=== PATIENT | female | born 1970 | race Caucasian/White ===

== ENCOUNTER 2023-07-22 09:37 | Emergency (ER) | payer BC, SELFPAY ==
[2023-07-22 09:44] VITALS: BP 146/87
--- NOTE | 2023-07-22 10:40 | ED.GENMED ---
History of Present Illness
<ISABELL Patino - Last Filed: 07/22/23 12:41>
General
Chief Complaint: Dizziness
Source: patient
Exam Limitations: none
Time Seen by Provider: 07/22/23 10:13
Travel History
Have you had any contact with someone who has COVID-19?: No
Do you have any symptoms of coronavirus? Fever > 100 degrees, chills, cough, shortness of breath, sore throat, loss of taste or smell, muscle aches, or headache?: No
History of Present Illness
History of Present Illness:
Patient is a 53-year-old female who presents to the ER for evaluation. Patient reports on Friday she did not feel well felt' off.' She thought she may have had food poisoning or was hung over from the night before. She did vomit 1 but since
Friday night she developed what she describes as' a haze.' Despite describing feeling like she is in a haze she reports her vision is clear. She just feels off. She has some pressure to the front of her head but denies any actual headache. She
denies any recent injury. She at times feels that she is moving when she has not but the room is not spinning. She has never had a history of vertigo. She denies any recent illness fever chills. She denies any recent trauma.
She denies any associated chest pain shortness of breath.
Past History
<ISABELL Patino - Last Filed: 07/22/23 12:41>
Past History
ED Past Medical History: None
ED Past Surgical History: None
Social History
Tobacco: Non-smoker
Alcohol: None
Drug: Marijuana
Review of Systems
<ISABELL Patino - Last Filed: 07/22/23 12:41>
Review of Systems
Allergies reviewed?: Yes
All Other Systems: ROS reviewed and negative except as documented in HPI and ROS
Constitutional: Reports no symptoms; Denies fever, fatigue or chills
Respiratory: Reports no symptoms
Cardiac: Reports no symptoms
ABD/GI: Reports nausea, vomiting and other (pt vomited once on Friday 2 d ago )
: Reports no symptoms
Musculoskeletal: Reports no symptoms
Skin: Reports no symptoms
Neurological: Reports other (feels like she is in a 'haze' ); Denies headache, weakness or numbness
Hematologic/Lymphatic: Reports no symptoms
Psychiatric: Reports no symptoms
Phy Exam
<ISABELL Patino - Last Filed: 07/22/23 12:41>
General Physical Exam
General Presentation: no apparent distress
General age: appears stated age
General Skin: warm and dry
General Habitus: normal
General Mental: alert
General Hydration: appears well hydrated
ENT Exam
ENT Exam: EOMI and neck supple
Eye Exam
Eye Exam: PERRL, EOMI and other (no nystagmus b/l )
Eye Exam General: PERRL: bilateral and EOM intact: bilateral
Pupil Exam: Bilateral: round and reactive
Cardiovascular Exam
Cardiovascular Exam: regular rate/rhythm, no murmur and normal peripheral pulses
Pulmonary Exam
Pulmonary Exam: lungs clear
Neurological Exam
Neurological Exam: alert, oriented x3, no motor deficits, no sensory deficits, speech normal and other (Ambulatory with a steady gait)
[place] Coma Scale
Eye Opening: Spontaneous
Verbal Response: Oriented
Motor Response: Obeys Commands
GCS Total Score: 15
Cerebellar
Cerebellar Function: normal finger to nose
Musculoskeletal Exam
Musculoskeletal Exam: full ROM
Skin Exam
Skin Exam: normal color and warm/dry
Psychiatric Exam
Psychiatric Exam: normal mood/affect
Course
<ISABELL Patino - Last Filed: 07/22/23 12:41>
Orders/Labs/Results
Orders:
Orders
07/22/23 10:37
CT Head W/o Iv Contrast Urgent
Comment:
Reason For Exam: dizzy
07/22/23 10:38
Cardiac Monitoring- Treatment ONCE
IV Insert/Care/Rem.- Treatment PRN
07/22/23 10:40
Electrocardiogram (*1) Stat
Reason for Study: Abdominal Pain
EKG- Treatment ONCE
07/22/23 10:43
Complete Blood Count/With Diff Urgent
Comprehensive Metabolic Panel Urgent
07/22/23 10:55
0.9% Sodium Chloride 1000 ml [Nss] 1,000 ml IV BOLUS
07/22/23 10:56
Meclizine [Antivert] 25 mg PO NOW STA
Abnormal Lab Results
07/22/23
10:43
RBC 4.15 L 10^6/uL
(4.20-5.40)
Hct 36.3 L %
(37.0-47.0)
BUN 21 H mg/dl
(7-17)
07/22/23 10:43
07/22/23 10:43
Vital Signs
Initial and Last Documented VS:
Initial Vital Signs
Temp Pulse Resp BP Pulse Ox
98.1 F 60 16 146/87 100
07/22/23 09:44 07/22/23 09:44 07/22/23 09:44 07/22/23 09:44 07/22/23 09:44
Last Documented Vital Signs
Temp Pulse Resp BP Pulse Ox
98.1 F 55 16 120/69 99
07/22/23 09:44 07/22/23 11:05 07/22/23 11:05 07/22/23 11:05 07/22/23 11:05
Internet Sales Associate consulted with Physician
Internet Sales Associate consulted with physician?: Yes
Name of Physician Consulted: [facility]
<Delbert Bill Isaac, DO - Last Filed: 07/22/23 11:33>
Orders/Labs/Results
Orders:
Orders
07/22/23 10:37
CT Head W/o Iv Contrast Urgent
Comment:
Reason For Exam: dizzy
07/22/23 10:38
Cardiac Monitoring- Treatment ONCE
IV Insert/Care/Rem.- Treatment PRN
07/22/23 10:40
Electrocardiogram (*1) Stat
Reason for Study: Abdominal Pain
EKG- Treatment ONCE
07/22/23 10:43
Complete Blood Count/With Diff Urgent
Comprehensive Metabolic Panel Urgent
07/22/23 10:55
0.9% Sodium Chloride 1000 ml [Nss] 1,000 ml IV BOLUS
07/22/23 10:56
Meclizine [Antivert] 25 mg PO NOW STA
Abnormal Lab Results
07/22/23
10:43
RBC 4.15 L 10^6/uL
(4.20-5.40)
Hct 36.3 L %
(37.0-47.0)
BUN 21 H mg/dl
(7-17)
07/22/23 10:43
07/22/23 10:43
Vital Signs
Initial and Last Documented VS:
Initial Vital Signs
Temp Pulse Resp BP Pulse Ox
98.1 F 60 16 146/87 100
07/22/23 09:44 07/22/23 09:44 07/22/23 09:44 07/22/23 09:44 07/22/23 09:44
Last Documented Vital Signs
Temp Pulse Resp BP Pulse Ox
98.1 F 55 16 120/69 99
07/22/23 09:44 07/22/23 11:05 07/22/23 11:05 07/22/23 11:05 07/22/23 11:05
<ISABELL Patino - Last Filed: 07/22/23 12:41>
MDM/Problems Addressed
Differential Diagnosis Includes:
not limited to: Orthostatic hypotension, vertigo, dehydration
MDM/Problems Addressed:
Symptoms are consistent with possible vertigo. Patient describes feeling foggy feels like she is in a haze does feel like she is moving things not necessarily spinning. She however has no other concerning findings. On exam she is nontoxic with
normal neurologic exam no obvious head injury CAT scan negative. Patient feels meclizine. She did not drink a lot of fluids yesterday because of not feeling well. Will give fluids here in the ER. Labs unremarkable. Case discussed with ED
physician who examined patient will DC with meclizine with close outpatient follow-up family doctor.
<ISABELL Patino - Last Filed: 07/22/23 12:41>
*Radiology
Radiology exam reviewed: radiology read reviewed
*EKG
Interpretation: abnormal
Heart Rate: 50
Rate: bradycardiac
Rhythm: sinus
Ischemia: no ischemia
*Critical Care Note
Total Time (30-74mins, 75-104mins- exclusive of procedures): Not Applicable
ED Attending Note
<ISABELL Patino - Last Filed: 07/22/23 12:41>
-
Portions of this chart may have been created with voice recognition software.� Occasional wrong word or��sound alike� substitutions may have occurred due to the inherent limitations of voice recognition software.
<Delbert Isaac DO - Last Filed: 07/22/23 11:33>
ED Attending Note
Patient seen and examined by attending physician: Yes
I performed the substantive portion of visit, reviewed & personally made and approve the management plan that is documented in note by myself or WADE.: Yes
I performed a history and physical exam of patient and discussed management with resident, I reviewed resident's note and agree with documented findings and plan of care.: Yes
ED Attending Note:
I evaluated patient at bedside. She has a nonfocal neurologic examination. She has negative [place]-Hallpike maneuver however she also says that some symptoms do worsen when she gets up suddenly. We do give IV fluids for the possibility of
orthostasis. Labs unremarkable. CT imaging unremarkable.
Discharge Plan
Departure
Patient Disposition: Home (Routine Discharge)
Date of Disposition: 07/22/23
Time of Disposition: 12:38
Patient with high blood pressure during this ER visit?: Yes
Condition: Fair
Covid-19: Not Applicable
Discharge Problem:
Vertigo
Instructions: Vertigo (a Type of Dizziness) (DC)
Prescriptions:
New
meclizine 25 mg tablet
25 mg PO TID PRN (Reason: dizziness) Qty: 10 0RF
Referrals:
Elian Escoto MD [Family Provider] -
Activity Restrictions/Additional Instructions:
As discussed a prescription for meclizine was sent to your pharmacy. Take as directed for dizziness. Stay well-hydrated. Follow-up however with your family doctor in the next 2-3 day for reevaluation of symptoms return if any worsening of
symptoms if worsening dizziness headaches difficulty walking or any further concerns.
Interventions
Interventions:
*Risk Screen - Suicide Last Done: 07/22/23 09:46
*General Assessment Last Done: 07/22/23 09:46
*Neglect/Abuse Screening Last Done: 07/22/23 09:46
ED- Fall Risk Assessment Last Done: 07/22/23 10:20
*ED COVID-19 Vaccine History Last Done: 07/22/23 10:20
ED- Neurological Assessment Last Done: 07/22/23 10:34
ED Swallowing Screen Last Done: 07/22/23 10:20
Discharge Date and Time
Print Language: PASHTO
[2023-07-22 10:59] LABS: % Basophils 1.1 % (0-2); % Eosinophils 1.9 % (0-6); % Immature Granulocytes 0.3 % (0-0.5); % Monocytes 8.5 % (1.7-9.3); % Neutrophils 49.2 % (42.2-75.2); Absolute Basophils 0.1 10^3/uL (0-0.2); Absolute Eosinophils 0.1 10^3/uL (0-0.7); Absolute Lymphocytes 2.5 10^3/uL (1.2-3.4); Absolute Monocytes 0.5 10^3/uL (0.1-0.6); Absolute Neutrophils 3.1 10^3/uL (1.4-6.5); Hematocrit 36.3 % (37.0-47.0); Hemoglobin 12.6 g/dL (12.0-16.0); Mean Corp Hgb Conc. 34.7 g/dL (33.0-37.0); Mean Corpuscular Hgb 30.4 pg (27.0-31.0); Mean Corpuscular Volume 87.5 fL (81.0-99.0); Mean Platelet Volume 9.3 fL (7.4-10.4); Nucleated Red Blood Cells % 0 %; Platelet Count 303 10^3/uL (130-400); Red Blood Cell Count 4.15 10^6/uL (4.20-5.40); Red Cell Dist. Width 12.8 % (11.5-14.5); White Blood Cell Count 6.3 10^3/uL (4.8-10.8)
[2023-07-22] MEDS: NSS 1000 IV (11:04)
[2023-07-22] MEDS: ANTIVERT 25 MG PO (11:04)
[2023-07-22 11:05] VITALS: BP 120/69
[2023-07-22 11:10] LABS: ALT (SGPT) 21 U/L (0-35); AST (SGOT) 27 U/L (14-36); Albumin 4.2 g/dl (3.5-5.0); Alkaline Phosphatase 68 U/L (38-126); Blood Urea Nitrogen 21 mg/dl (7-17); Calcium 9.1 mg/dl (8.4-10.2); Carbon Dioxide 27 mmol/L (22-30); Chloride 105 mmol/L (98-107); Glucose 91 mg/dl (70-99); Potassium 4.1 mmol/L (3.5-5.1); Sodium 136 mmol/L (135-145); Total Bilirubin 0.4 mg/dl (0.2-1.3); eGFR > 60.00
[2023-07-22 12:45] VITALS: BP 135/68
== END 2023-07-22 13:15 | disposition home or self-care (01) ==
LOC: EMR 09:37
PROVIDERS: Nurse Practitioner; EMERGENCY PHYSICIAN Emergency Medicine; FAMILY PHYSICIAN Family Medicine
DX: R42 Dizziness and giddiness (principal)
CPT/HCPCS: 99284; 96360; 70450; 80053; 85025; 93005